=== PATIENT | male | born 1960 | race Asian ===

== ENCOUNTER 2022-06-02 00:14 | Emergency (ER) | payer OTHER ==
[~2022-06-02] VITALS: Ht 170.2 cm; Wt 78.0 kg
[2022-06-02 00:19] VITALS: BP_SYST 153
--- NOTE | 2022-06-02 00:21 | NUR ---
PER PATIENT, PATIENT NOTICED A PIMPLE ON FACE ON SATURDAY AND IT HAS ONLY SPREAD AND GOTTEN WORSE OVER FACE. STARTED CLINDAMYCIN TWO DAYS AGO WHICH HELPED WITH FEVER BUT NOTHING WORSE, STILL SPREADING. NO FEVER OR OTHER SYMPTOMS CURRENTLY.
--- NOTE | 2022-06-02 00:59 | NUR ---
PATIENT TO BED 8 FOR EVAL.
--- NOTE | 2022-06-02 02:00 | NUR ---
MD MONTOYA AT BEDSIDE EXAMINING PT.
[2022-06-02] MEDS ORDERED: valACYclovir HCL 500 MG TABLET PO SCH (02:15)
[2022-06-02] MEDS ORDERED: predniSONE 20 MG TABLET PO ONE (02:15)
--- NOTE | 2022-06-02 02:53 | NUR ---
PT MEDICATED ORDERED.
[2022-06-02] MEDS ORDERED: PRED20TA PO (02:55)
[2022-06-02] MEDS ORDERED: VALA10002 PO (02:55)
[2022-06-02] MEDS ORDERED: ACYCLOVIR 400 MG TABLET ONE (03:08)
--- NOTE | 2022-06-02 03:10 | NUR ---
Patient given written and verbal discharge instructions and verbalizes understanding. ER MD Romero discussed with patient the results and treatment provided. Patient in stable condition. ID arm band removed. Rx of Prednisone and Valtrex sent to preferred pharmacy. Patient educated on pain management and to follow up with PMD. Opportunity for questions provided and answered. Medication side effect fact sheet provided.
[2022-06-02 03:11] VITALS: BP_SYST 140
[2022-06-02] MEDS ORDERED: ACYCLOVIR 400 MG TABLET PO ONE (03:15)
== END 2022-06-02 02:00 | disposition home or self-care (01) ==
LOC: SED 00:14
DX: B02.22 Postherpetic trigeminal neuralgia (principal); R22.0 Localized swelling, mass and lump, head; Z79.899 Other long term (current) drug therapy
CPT/HCPCS: 99283; 87070; J7512